=== PATIENT | female | born 1995 ===

== ENCOUNTER 2018-01-04 10:15 | Emergency (ER) | payer OTHER ==
[~2018-01-04] VITALS: Ht 149.9 cm; Wt 65.3 kg
== END 2018-01-04 12:24 | disposition home or self-care (01) ==
LOC: ER 10:15
DX: Z34.01 Encounter for supervision of normal first pregnancy, first trimester (principal); R10.2 Pelvic and perineal pain

== ENCOUNTER 2018-06-17 14:00 | Inpatient (IN) | payer OTHER ==
[~2018-06-17] VITALS: Ht 149.9 cm; Wt 72.6 kg
[2018-07-02] MEDS ORDERED: PRENATABS RX T1 EACH PO (19:34)
== END 2018-07-05 12:16 | DRG 775 ==
LOC: OB/GYN 07-03 04:19 → LDR 07-03 04:19 → OB/GYN 07-03 13:37 → LDR 07-06 14:00
PROC: 0KQM0ZZ Repair Perineum Muscle, Open Approach (ICD-10-PCS; principal; 2018-07-03)
PROC: 10E0XZZ Delivery of Products of Conception, External Approach (ICD-10-PCS; 2018-07-03)
PROC: 4A1HXCZ Monitoring of Products of Conception, Cardiac Rate, External Approach (ICD-10-PCS; 2018-07-03)
PROC: 4A033R1 Measurement of Arterial Saturation, Peripheral, Percutaneous Approach (ICD-10-PCS; 2018-07-03)
DX: O70.1 Second degree perineal laceration during delivery (principal); Z37.0 Single live birth; Z3A.39 39 weeks gestation of pregnancy; Z22.330 Carrier of Group B streptococcus

== ENCOUNTER 2018-07-02 17:08 | Outpatient (CLI) | payer OTHER ==
[2018-07-02] MEDS ORDERED: PRENATABS RX T1 EACH PO (19:34)
== END 2018-07-03 11:35 | disposition still patient (30) ==
LOC: OBS/DEL 17:08
DX: O47.1 False labor at or after 37 completed weeks of gestation (principal); Z34.03 Encounter for supervision of normal first pregnancy, third trimester

== ENCOUNTER 2023-01-09 14:40 | Outpatient (CLI) | payer OTHER ==
[~2023-01-09 14:40] MED LIST: PRENATABS RX T1 EACH PO
== END 2023-01-09 15:44 | disposition home or self-care (01) ==
LOC: PRENATAL 14:40
PROVIDERS: ATTEND Obstetrics & Gynecology Maternal & Fetal Medicine
DX: O35.9XX0 Maternal care for (suspected) fetal abnormality and damage, unspecified, not applicable or unspecified (principal); O35.3XX0 Maternal care for (suspected) damage to fetus from viral disease in mother, not applicable or unspecified; Z3A.21 21 weeks gestation of pregnancy

== ENCOUNTER 2023-03-28 13:51 | Outpatient (CLI) | payer OTHER | END 2023-03-28 15:27 | disposition home or self-care (01) | LOC: PRENATAL 13:51 | PROVIDERS: ATTEND Obstetrics & Gynecology Maternal & Fetal Medicine | DX: O26.849 Uterine size-date discrepancy, unspecified trimester (principal); O36.8199 Decreased fetal movements, unspecified trimester, other fetus; Z3A.32 32 weeks gestation of pregnancy ==